=== PATIENT | female | born 1990 ===

== ENCOUNTER 2018-03-08 18:52 | Emergency (ER) | payer OTHER ==
[2018-03-08 18:59] VITALS: TEMP 98.3; O2SAT 100
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
[2018-03-08 21:10] VITALS: BP 100/68; PULSE 78; RESP 16
--- NOTE | 2018-03-09 08:31 | CT ---
Date of service: 03/08/2018 PROCEDURE: CT HEAD WITHOUT CONTRAST. HISTORY: head injury yesterday, headache, dizziness COMPARISON: None available. TECHNIQUE: Axial computed tomography images were obtained through the head/brain without intravenous contrast. Radiation dose: Total exam DLP = 765.77 mGy-cm. This CT exam was performed using one or more of the following dose reduction techniques: Automated exposure control, adjustment of the mA and/or kV according to patient size, and/or use of iterative reconstruction technique. FINDINGS: HEMORRHAGE: No intracranial hemorrhage. BRAIN: No mass effect or edema. No atrophy or chronic microvascular ischemic changes. VENTRICLES: Unremarkable. No hydrocephalus. CALVARIUM: Unremarkable. PARANASAL SINUSES: Unremarkable as visualized. No significant inflammatory changes. MASTOID AIR CELLS: Unremarkable as visualized. No inflammatory changes. OTHER FINDINGS: None. IMPRESSION: Normal CT of the Head. No intracranial hemorrhage. The preliminary findings for this examination were reported by [facility] at 8:21 p.m. on 03/08/2018. There is concurrence of this report with the preliminary findings.
== END 2018-03-08 20:30 | disposition home or self-care (01) ==
LOC: C.ER 18:52
DX: S06.0X0A Concussion without loss of consciousness, initial encounter (principal); W18.30XA Fall on same level, unspecified, initial encounter; Y93.51 Activity, roller skating (inline) and skateboarding